=== PATIENT | female | born 1995 | race Two or more races ===

== ENCOUNTER 2020-11-28 07:11 | Emergency (ER) | payer BC ==
[~2020-11-28] VITALS: Ht 162.6 cm; Wt 63.5 kg
[2020-11-28 07:22] VITALS: BP 113/67
--- NOTE | 2020-11-28 07:28 | NUR ---
AT BEDSIDE FOR EVAL.
--- NOTE | 2020-11-28 07:31 | NUR ---
RAPID STREP OBTAINED AND SENT TO LAB.
[2020-11-28] MEDS ORDERED: DEXAMETHASONE SOLN 5 MG/5 ML UDC ONE (08:27)
[2020-11-28] MEDS ORDERED: DEXAMETHASONE SOLN 0.5 MG/5 ML UDC PO ONE (08:30)
--- NOTE | 2020-11-28 08:32 | NUR ---
COVID SPECIMEN OBTAINED AND SENT TO LAB.
--- NOTE | 2020-11-28 08:36 | NUR ---
Patient discharged to home in stable condition. Written and verbal after care instructions given. Patient verbalizes understanding of instruction.
== END 2020-11-28 08:37 | disposition home or self-care (01) ==
LOC: ER 07:18
DX: J02.9 Acute pharyngitis, unspecified (principal); Z20.822 Contact with and (suspected) exposure to COVID-19
CPT/HCPCS: 87070; 87426; 87880; 99283; C9803; J8540; 86403-TC